=== PATIENT | female | born 1960 | race Caucasian/White ===

== ENCOUNTER 2017-01-17 18:18 | Emergency (ER) | payer OTHER, MEDICAID ==
[~2017-01-17] VITALS: Ht 167.6 cm; Wt 64.5 kg
[~2017-01-17 18:18] MED LIST: BENZ1 PO; DIVA500 PO; FLUO-1 PO; HALO5 PO; LAMO100 PO; LAMO150 PO; LISI30TA44 PO; PROZ20CA11 PO; QUET200 PO; SERO300T PO
[2017-01-17 18:26] VITALS: BP 125/87; PULSE 65; RESP 15; TEMP 98.7; O2SAT 97
--- NOTE | 2017-01-17 18:59 | PD ---
HPI Chief Complaint: Oral / Dental Pain or Problem Time Seen by Provider: 18:34 Travel History International Travel<30 days: No Contact w/Intl Traveler<30days: No Traveled to known affect area: No History of Present Illness HPI 56-year-old female presents to the emergency room requesting a biopsy of a growth in her mouth. Patient has had a growth for 9 months. States it is especially increased in size over the past 2 months. It is causing her pain when she bites down and headaches. She has been to 2 different dentists but she could not afford to have the procedure done because her insurance does not cover dental. She reportedly called the [place] oncology department who told her she needs a biopsy and she understood them to maintain that she should come to the emergency room for said biopsy. Patient has a primary care physician with whom she has an appointment next month. She has history of hypertension, hyperlipidemia, and bipolar disorder. PFSH Past Medical History Anxiety: Yes Depression: Yes Cancer: No Cardiovascular Problems: No Diabetes: No Headaches: Yes (daily since 2012) [facility]: [facility] Seizures: No Social History Alcohol Use: No Tobacco Use: No Substance Use: No Allergies-Medications (Allergen,Severity, Reaction): Coded Allergies: diphenhydramine (Unverified Allergy, Unknown, 01/17/17) erythromycin base (Unverified Allergy, Unknown, 01/17/17) ketorolac (Unverified Allergy, Unknown, 01/17/17) Reported Meds & Prescriptions Reported Meds & Active Scripts Active Quetiapine Fumarate 200 Mg Tab 800 Mg PO HS 14 Days Lamictal (Lamotrigine) 100 Mg Tab 150 Mg PO DAILY 14 Days Haldol (Haloperidol) 5 Mg Tab 5 Mg PO BID 14 Days Prozac (Fluoxetine HCl) 20 Mg Cap 20 Mg PO DAILY [address] (Divalproex Sodium) 500 Mg Tabec 500 Mg PO BID 14 Days Benztropine Mesylate 1 Mg Tab 1 Mg PO Q6H PRN 14 Days Reported Seroquel 300 mg (Quetiapine Fumarate) 300 Mg Tab 300 Mg PO HS Prozac (Fluoxetine HCl) 10 Mg Cap 10 Mg PO DAILY Lamictal (Lamotrigine) 150 Mg Tab 150 Mg PO DAILY Lisinopril 30 mg (Lisinopril) 30 Mg Tab 1 Tab PO DAILY Review of Systems Except as stated in HPI: all other systems reviewed are Neg Physical Exam Narrative GENERAL: Well-nourished, well-developed female in no acute distress. Afebrile. Ambulatory. SKIN: Focused skin assessment warm/dry. HEAD: Normocephalic. EYES: No scleral icterus. No injection or drainage. NECK: Supple, trachea midline. No JVD or lymphadenopathy. ENT: Mucosa pink and moist. No erythema or exudates. No uvular edema. No uvular , palatal, or tonsillar deviation. Airway patent. There is a 1-2 cm in diameter firm, round growth lateral to teeth 18-20. It is mildly friable. CARDIOVASCULAR: Regular rate and rhythm without murmurs, gallops, or rubs. RESPIRATORY: Breath sounds equal bilaterally. No accessory muscle use. Data Data Last Documented VS Vital Signs Date Time Temp Pulse Resp B/P (MAP) Pulse Ox O2 Delivery O2 Flow Rate FiO2 01/17/17 18:26 98.7 65 15 125/87 (100) 97 MDM Medical Decision Making Medical Screen Exam Complete: Yes Emergency Medical Condition: Yes Medical Record Reviewed: Yes Differential Diagnosis Tumor, biopsy, foreign body, benign growth, cancer Narrative Course 56-year-old female presents to the emergency room requesting biopsy of a growth in her mouth that has been present for 9 months. It significantly increased in size over the last 2 months. It bleeds occasionally. Patient has seen 2 dentists but has not been able to afford the biopsy because her insurance does not cover dental. She has not followed up with ENT, oral surgeon, or primary care physician. She has an appointment with her PCP next month. Physical exam reveals a 1-2 cm round, slightly friable, firm mass lateral to the teeth #18- 20. It is mildly tender to palpation. Patient was informed that we do not routinely perform biopsies in the emergency room and that she will need to follow-up with an oral surgeon for outpatient procedure. She was given the name of the surgeon urban design consultant. She was reassured and told to keep her appointment with her primary care physician for referral or return for urgent or emergent medical conditions. She understands and agrees to plan. Diagnosis Primary Impression: Mass of oral cavity Referrals: Eliazar Espinal DMD Additional Instructions: Follow-up with an oral surgeon. Follow-up with a primary care physician. Return to the emergency room for worsening symptoms. Disposition: 01 DISCHARGE HOME Condition: Stable Jaja Perez Jan 17, 2017 18:58
[2017-01-17] MEDS ORDERED: PROP10TA6 PO (19:00)
[2017-01-17] MEDS ORDERED: LAMO150T PO (19:00)
[2017-01-17] MEDS ORDERED: ARIP1TAB12 PO (19:00)
[2017-01-17] MEDS ORDERED: FLUO10TA PO (19:00)
[2017-01-17] MEDS ORDERED: ATOR10TA15 PO (19:00)
[2017-01-17] MEDS ORDERED: HYDR25TA5 PO (19:00)
[2017-01-17] MEDS ORDERED: METH2.5T PO (19:00)
[2017-01-17] MEDS ORDERED: RISP1TAB2 PO (19:00)
[2017-01-17] MEDS ORDERED: FOLI1TAB6 PO (19:00)
[2017-01-17] MEDS ORDERED: GABA300C5 PO (19:00)
[2017-01-17] MEDS ORDERED: TRAZ100T6 PO (19:00)
== END 2017-01-17 19:10 | disposition home or self-care (01) ==
LOC: PHEFT 18:18
DX: R22.9 Localized swelling, mass and lump, unspecified (principal); E78.5 Hyperlipidemia, unspecified; I10 Essential (primary) hypertension
CPT/HCPCS: 99281

== ENCOUNTER 2017-01-19 14:13 | Inpatient (IN) | payer OTHER, MEDICAID, MEDICARE ==
[~2017-01-19] VITALS: Ht 167.6 cm; Wt 66.7 kg
[~2017-01-19 14:13] MED LIST changes: +ARIP1TAB12 PO; +ATOR10TA15 PO; +FLUO10TA PO; +FOLI1TAB6 PO; +GABA300C5 PO; +HYDR25TA5 PO; +LAMO150T PO; +METH2.5T PO; +PROP10TA6 PO; +RISP1TAB2 PO; +TRAZ100T6 PO
[2017-01-19 14:16] VITALS: BP 127/89; PULSE 63; RESP 17; TEMP 98.4; O2SAT 96
[2017-01-19 15:03] LABS: AUTOMATED NEUTROPHIL # 4.4 TH/MM3 (1.8-7.7); BASOPHIL # 0.1 TH/MM3 (0-0.2); BASOPHIL % 1.3 % (0.0-2.0); EOSINOPHIL % 0.6 % (0.0-4.0); HEMATOCRIT 36.4 % (35.0-46.0); HEMO FLAGS DIFF FINAL; LYMPH % 22.2 % (9.0-44.0); LYMPHOCYTE # 1.5 TH/MM3 (1.0-4.8); MEAN CELL VOLUME 84.3 FL (80.0-100.0); MEAN CORPUSCULAR HGB CONC 34.4 % (32.0-36.0); NEUT % 66.9 % (16.0-70.0); PLATELET COUNT 275 TH/MM3 (150-450); RED BLOOD COUNT 4.32 MIL/MM3 (4.00-5.30); WHITE BLOOD COUNT 6.6 TH/MM3 (4.0-11.0)
[2017-01-19 15:34] LABS: ALKALINE PHOSPHATASE 85 U/L (45-117); ALT (GPT) 15 U/L (10-53); ANION GAP 9 MEQ/L (5-15); AST (GOT) 11 U/L (15-37); BLOOD UREA NITROGEN 9 MG/DL (7-18); CHLORIDE 90 MEQ/L (98-107); GLOMERULAR FILTRATION RATE 81 ML/MIN (>89); POTASSIUM 3.7 MEQ/L (3.5-5.1); TOTAL BILIRUBIN ADULT 0.3 MG/DL (0.2-1.0)
[2017-01-19 15:51] LABS: SODIUM (NA) 123 MEQ/L (136-145)
[2017-01-19] MEDS ORDERED: SODIUM CHLOR 0.9% 1000 ML INJ 1,000 ML IV SCH (16:03)
--- NOTE | 2017-01-19 16:07 | PD ---
HPI Chief Complaint: Psychiatric Symptoms Time Seen by Provider: 16:03 Travel History International Travel<30 days: No Contact w/Intl Traveler<30days: No Traveled to known affect area: No History of Present Illness HPI 56-year-old female presents to the emergency Department voluntarily for psych evaluation for feeling paranoid. She has history of paranoid schizophrenia. Takes multiple psych medications. Reports suicidal ideation. Has a plan to stab herself in the heart with a knife. Denies homicidal ideations. Reports auditory hallucinations. Says she hears voices that just talk to her. Denies visual hallucinations. Patient's sodium is low in her labs and she states history of low sodium about 2 years ago and was hospitalized at [facility] for it. Patient is complaining of a lump to her left lower oral gum that has been there for 6 months. She has followed up with oral surgery and said that they need to remove and biopsy at that she cannot afford to pay for them to do it. Allergies to Benadryl, erythromycin, and Toradol. Symptoms are moderate in severity. No other modifying factors or associated signs and symptoms. PFSH Past Medical History Anxiety: Yes Depression: Yes Cancer: No Cardiovascular Problems: No Diabetes: No Headaches: Yes (daily since 2012) Psychiatric: Yes ([facility]) Seizures: No ?: Not Social History Alcohol Use: No Tobacco Use: No Substance Use: No Allergies-Medications (Allergen,Severity, Reaction): Coded Allergies: diphenhydramine (Unverified Allergy, Unknown, 01/19/17) erythromycin base (Unverified Allergy, Unknown, 01/19/17) ketorolac (Unverified Allergy, Unknown, 01/19/17) Reported Meds & Prescriptions Reported Meds & Active Scripts Active Reported Artificial Tears Opth Oint (White Petrolatum-Mineral Oil Opth Oint 83-15%) 83-15 % Oint 1 Applic EACH EYE BID Pull down lower eyelid & apply 1/4 inch to inside of eyelid. Lidocaine Patch 12 HR (Lidocaine) 5 % Patch 1 Patch TOPICAL DAILY Remove patch after 12 hours Risperidone 1 Mg Tab 1 Mg PO DAILY Propranolol (Propranolol HCl) 10 Mg Tab 10 Mg PO Q8HR Trazodone (Trazodone HCl) 100 Mg Tablet 100 Mg PO HS Methotrexate 2.5 Mg Tab 10 Mg PO Q7D Folic Acid 1 Mg Tablet 1 Tab PO DAILY Aripiprazole 10 Mg Tab 10 Mg PO DAILY Hydrochlorothiazide 25 Mg Tab 25 Mg PO DAILY Fluoxetine (Fluoxetine HCl) 10 Mg Tab 10 Mg PO TID Lamotrigine 150 Mg Tab 150 Mg PO DAILY Gabapentin 300 Mg Cap 300 Mg PO TID Atorvastatin (Atorvastatin Calcium) 10 Mg Tab 10 Mg PO HS Review of Systems Except as stated in HPI: all other systems reviewed are Neg Physical Exam Narrative GENERAL: Well-nourished, well-developed female patient, in no acute distress SKIN: Warm and dry. HEAD: Atraumatic. Normocephalic. No facial edema or erythema noted. No lymphadenopathy. EYES: Pupils equal and round. ENT: Mucosa pink and moist. No erythema or exudates. No uvular edema. No uvular , palatal, or tonsillar deviation. Airway patent. MOUTH: Mucous membranes moist, no lesions, tongue appear normal. Left lower gum with approximately 1-1/2 cm lump that is firm and tender to palpation; no fluctuance, drainage, erythema. NECK: Supple. Trachea midline. CARDIOVASCULAR: Regular rate and rhythm. No murmur appreciated. RESPIRATORY: No accessory muscle use. Clear to auscultation. Breath sounds equal bilaterally. GASTROINTESTINAL: Abdomen soft, non-tender, nondistended. Hepatic and splenic margins not palpable. Bowel sounds are active 4 quadrants. MUSCULOSKELETAL: No obvious deformities. No clubbing. No cyanosis. No edema. NEUROLOGICAL: Awake and alert. Oriented 3. No obvious cranial nerve deficits. Motor grossly within normal limits. Normal speech. Moves all extremities. 5/5 strength to all extremities. PSYCHIATRIC: No delusional thought processes. No hallucinations. Data Data Last Documented VS Vital Signs Date Time Temp Pulse Resp B/P (MAP) Pulse Ox O2 Delivery O2 Flow Rate FiO2 01/19/17 16:55 53 16 132/82 (99) 100 Room Air 01/19/17 14:16 98.4 Orders Orders Complete Blood Count With Diff (01/19/17 14:39) Comprehensive Metabolic Panel (01/19/17 14:39) Psych Screen (01/19/17 14:39) Drug Screen, Random Urine (01/19/17 14:39) Iv Access Insert/Monitor (01/19/17 16:03) Sodium Chlor 0.9% 1000 Ml Inj (Ns 1000 M (01/19/17 16:03) Sodium Chloride 0.9% Flush (Ns Flush) (01/19/17 16:15) Urinalysis - C+S If Indicated (01/19/17 16:36) Sodium (Na) (01/19/17 18:39) Urine Culture (01/19/17 18:45) Labs Laboratory Tests Test 01/19/17 14:44 01/19/17 14:50 01/19/17 18:40 01/19/17 18:45 White Blood Count 6.6 TH/MM3 Red Blood Count 4.32 MIL/MM3 Hemoglobin 12.5 GM/DL Hematocrit 36.4 % Mean Corpuscular Volume 84.3 FL Mean Corpuscular Hemoglobin 29.0 PG Mean Corpuscular Hemoglobin Concent 34.4 % Red Cell Distribution Width 14.0 % Platelet Count 275 TH/MM3 Mean Platelet Volume 7.9 FL Neutrophils (%) (Auto) 66.9 % Lymphocytes (%) (Auto) 22.2 % Monocytes (%) (Auto) 9.0 % Eosinophils (%) (Auto) 0.6 % Basophils (%) (Auto) 1.3 % Neutrophils # (Auto) 4.4 TH/MM3 Lymphocytes # (Auto) 1.5 TH/MM3 Monocytes # (Auto) 0.6 TH/MM3 Eosinophils # (Auto) 0.0 TH/MM3 Basophils # (Auto) 0.1 TH/MM3 CBC Comment DIFF FINAL Differential Comment Blood Urea Nitrogen 9 MG/DL Creatinine 0.75 MG/DL Random Glucose 93 MG/DL Total Protein 7.9 GM/DL Albumin 4.0 GM/DL Calcium Level 9.0 MG/DL Alkaline Phosphatase 85 U/L Aspartate Amino Transf (AST/SGOT) 11 U/L Alanine Aminotransferase (ALT/SGPT) 15 U/L Total Bilirubin 0.3 MG/DL Sodium Level 123 MEQ/L 125 MEQ/L Potassium Level 3.7 MEQ/L Chloride Level 90 MEQ/L Carbon Dioxide Level 24.0 MEQ/L Anion Gap 9 MEQ/L Estimat Glomerular Filtration Rate 81 ML/MIN Urine Opiates Screen NEG Urine Barbiturates Screen NEG Urine Amphetamines Screen NEG Urine Benzodiazepines Screen NEG Urine Cocaine Screen NEG Urine Cannabinoids Screen NEG Urine Color LIGHT-YELLOW Urine Turbidity CLEAR Urine pH 6.5 Urine Specific Greer 1.010 Urine Protein NEG mg/dL Urine Glucose (UA) NEG mg/dL Urine Ketones NEG mg/dL Urine Occult Blood NEG Urine Nitrite NEG Urine Bilirubin NEG Urine Urobilinogen LESS THAN 2.0 MG/DL Urine Leukocyte Esterase LARGE Urine RBC 1 /hpf Urine WBC 34 /hpf Urine WBC Clumps RARE Urine Squamous Epithelial Cells <1 /hpf Urine Transitional Epithelial Cells 1 /hpf Microscopic Urinalysis Comment CULTURE INDICATED MDM Medical Decision Making Medical Screen Exam Complete: Yes Emergency Medical Condition: Yes Medical Record Reviewed: Yes Differential Diagnosis Suicidal ideation, suicidal threat, paranoid schizophrenia, bipolar disorder Narrative Course 56-year-old female with history of paranoid schizophrenia presents for voluntary psych screen with suicidal thoughts and a plan to stab herself in the heart. She has no current medical complaints. Labs were drawn in triage and her sodium is Sodium 123. IV site obtained. Normal saline bolus ordered. 1947: Sodium rechecked 125. Dr. Dai agrees the patient can me cleared medically for psych evaluation. Patient will be medically cleared for psych evaluation at this time. Patient instructed to follow-up with primary care provider in one week to have her sodium rechecked. Diagnosis Primary Impression: Hyponatremia Additional Impression: Medical clearance for psychiatric admission Additional Instructions: Follow-up with primary care provider in one week to have his sodium level rechecked Condition: Stable Kaitlin Rueda [address] PA[employer] HELPER Jan 19, 2017 16:07
[2017-01-19] MEDS ORDERED: SODIUM CHLORIDE 0.9% FLUSH 10 ML FLUSH IV FLUSH PRN (16:15)
[2017-01-19 16:55] VITALS: BP 132/82; PULSE 53; RESP 16; O2SAT 100
[2017-01-19] MEDS ORDERED: LIDO1PAD52 TOPICAL (16:55)
[2017-01-19] MEDS ORDERED: WHIT15OI EACH EYE (16:55)
[2017-01-19 19:32] LABS: BLOOD, URINE NEG (NEG); COMMENT (UR) CULTURE INDICATED; CULTURE IF INDICATED CULTURE INDICATED; GLUCOSE,URINE NEG (NEG); KETONE, URINE NEG (NEG); NITRITE,URINE NEG (NEG); PH, URINE 6.5 (5.0-8.5); SQUAMOUS EPITHELIAL CELL URINE <1 /hpf (0-5); TRANSITIONAL EPI CELLS, URINE 1 /hpf; URINE COLOR LIGHT-YELLOW (YELLW/STRAW)
[2017-01-19 20:18] VITALS: BP 144/96; PULSE 59; RESP 18; O2SAT 96
[2017-01-19 21:51] VITALS: BP 145/90; PULSE 53; RESP 16; O2SAT 99
[2017-01-20 02:00] VITALS: BP 113/71; PULSE 85; RESP 18; O2SAT 95
[2017-01-20 06:47] VITALS: BP 147/87; PULSE 62; RESP 18
[2017-01-20 12:00] VITALS: BP 132/94; PULSE 67; RESP 18; TEMP 97.4; O2SAT 98
[2017-01-20] MEDS ORDERED: LORazepam 1 MG TAB PO PRN (17:30)
[2017-01-20] MEDS ORDERED: BENZTROPINE MESYLATE 1 MG TAB PO PRN (17:30)
[2017-01-20] MEDS ORDERED: BENZTROPINE MESYLATE 2 MG/2 ML VIAL IM PRN (17:30)
[2017-01-20] MEDS ORDERED: LORazepam 0.5 MG TAB PO PRN (17:30)
[2017-01-20] MEDS ORDERED: MAGNESIUM HYDROXIDE SUSP 30 ML CUP PO PRN (17:30)
[2017-01-20] MEDS ORDERED: LORazepam 2 MG/ML VIAL IM PRN ×2 (17:30)
[2017-01-20] MEDS ORDERED: ALUMINUM/MAGNESIUM/SIMETH 30 ML CUP PO PRN (17:30)
[2017-01-20] MEDS ORDERED: PILL SPLITTER OTHER PRN (18:00)
[2017-01-20] MEDS: GABAPENTIN 300 MG CAP PO SCH (18:12)
[2017-01-20 18:14] VITALS: BP 144/92; PULSE 68; RESP 17; TEMP 97.5; O2SAT 99
[2017-01-20 18:48] VITALS: BP 166/86; PULSE 69; RESP 16; TEMP 98.5; O2SAT 96
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
[2017-01-20] MEDS: OLANZapine 5 MG TAB PO SCH (21:00)
[2017-01-20] MEDS: traZODone HCL 50 MG TAB PO SCH (21:28)
[2017-01-21] MEDS: ACETAMINOPHEN 325 MG TAB PO PRN (05:12)
[2017-01-21 05:55] VITALS: BP 160/86; PULSE 16; RESP 59; TEMP 97.9
[2017-01-21] MEDS: OLANZapine 5 MG TAB PO SCH ×2 (09:00→21:00)
[2017-01-21] MEDS ORDERED: NICOTINE 21 MG/24 HR PATCH T-DERMAL SCH (09:00)
[2017-01-21] MEDS ORDERED: REMOVE OLD PATCH T-DERMAL SCH (09:00)
[2017-01-21] MEDS: FLUoxetine HCL 10 MG CAP PO SCH (09:40)
[2017-01-21] MEDS: lamoTRIgine 100 MG TAB PO SCH (09:40)
[2017-01-21] MEDS: GABAPENTIN 300 MG CAP PO SCH ×3 (09:41→17:36)
--- NOTE | 2017-01-21 09:51 | EKG ---
Date Performed: 01/21/2017 Time Performed: 09:17:17 PTAGE: 56 years EKG: SINUS BRADYCARDIA LOW QRS VOLTAGE IN PRECORDIAL LEADS MODERATE T-WAVE ABNORMALITY, CONSIDER ANTERIOR ISCHEMIA ABNORMAL ECG NO PREVIOUS TRACING DOCTOR: Arthur Euceda Interpretating Date/Time 01/21/2017 09:49:44
--- NOTE | 2017-01-21 11:10 | HHI.PYPN ---
Subjective Remarks Patient was seen and case discussed with nursing. Patient describes feeling hopeless, doubting herself. Mood remains depressed. Auditory hallucinations are less severe. Continue to tell her to hurt herself. Patient says she prefers her room given all the noise in the hallways. Today, patient denies suicidal or homicidal thoughts ideation intent or plan. The medical consult is pending along with a current sodium level. Objective Alert: Yes [place]: Person, Place, Date, Situation Mood: Anxious Affect: Blunted Memory Intact: Immediate (grossly intact) Hallucinations: Auditory (to hurt herself) Delusions: Yes Delusion Type: Paranoid (none elicited) Suicidal: Ideation (denies) Homicidal: Ideation (denies) Insight/Judgment Poor Labs Date/Time Source Procedure Growth Status 01/19/17 18:45 Urine Clean Catch Urine Culture - Preliminary IMMATURE GROWTH - REINCUBATE Resulted Vitals/IOs Vital Signs Date Time Temp Pulse Resp B/P (MAP) Pulse Ox O2 Delivery O2 Flow Rate FiO2 01/21/17 05:55 97.9 16 59 160/86 (110) 01/20/17 18:48 96 01/20/17 12:00 Room Air Assessment & Plan Problem List: (1) Schizophrenia ICD Codes: F20.9 - Schizophrenia, unspecified Assessment & Plan await medical consult and sodium level before titrating antipsychotic Justification for Cont. Inpt. Patient will decompensate in a less restrictive setting Nash Rushing DO Jan 21, 2017 11:10
[2017-01-21 11:52] LABS: ANION GAP 4 MEQ/L (5-15); BICARBONATE 31.7 MEQ/L (21.0-32.0); BLOOD UREA NITROGEN 9 MG/DL (7-18); CHLORIDE 99 MEQ/L (98-107); GLOMERULAR FILTRATION RATE 77 ML/MIN (>89); POTASSIUM 4.1 MEQ/L (3.5-5.1); SODIUM (NA) 135 MEQ/L (136-145)
[2017-01-21] MEDS ORDERED: amLODIPine BESYLATE 5 MG TAB PO ONE (15:00)
--- NOTE | 2017-01-21 16:30 | PD.CONS ---
HPI Service [facility] Hospitalists Consult Requested By Psychiatry. Reason for Consult Oral mass, hyponatremia, hypertension. Primary Care Physician Irvin Kennedy MD Diagnoses: History of Present Illness Ms. Chiu is a pleasant 56 year old female with a history of hypertension, arthritic pain who was admitted to the hospital due to hallucinations, suicidal ideations. Patient is currently undergoing psychiatric treatments. Hospitalist service was consulted for medical management, especially with regards to a oral mass as well as hypertension, hyponatremia. At the time of this interview, patient is talking to her aunt in the visitor's area. She complains of left sided facial pain. She started noticing a nodular mass in the left side of her oral cavity back in April 2016 but much worsened in the last two months. She reports no chest pain, SOB, fever, chills. Denies any changes in bladder or bowel habits. She complains of chronic arthritis pain. Review of Systems Except as stated in HPI: all other systems reviewed are Neg Past Family Social History Allergies: Coded Allergies: diphenhydramine (Unverified Allergy, Unknown, 01/19/17) erythromycin base (Unverified Allergy, Unknown, 01/19/17) ketorolac (Unverified Allergy, Unknown, 01/19/17) Past Medical History Hypertension Arthritis Bradycardia. Auditory hallucinations Suicidal ideations Anxiety Past Surgical History Carpal tunnel surgery Right ovarian surgery. Reported Medications Current Medications Medications (Trade) Dose Ordered Sig/Pedrito Route Start Time Stop Time Status Last Admin (NS Flush) 2 ml UNSCH PRN IV FLUSH 01/19/17 16:15 01/19/17 16:26 (Ativan) 1 mg Q6H PRN PO 01/20/17 17:30 (Ativan Inj) 1 mg Q6H PRN IM 01/20/17 17:30 (Tylenol) 650 mg Q4H PRN PO 01/20/17 17:30 01/21/17 05:12 (Milk Of Magnesia Liq) 30 ml DAILY PRN PO 01/20/17 17:30 (Mag-Al Plus Susp Liq) 30 ml Q6H PRN PO 01/20/17 17:30 (Cogentin) 1 mg Q12H PRN PO 01/20/17 17:30 (Cogentin Inj) 1 mg Q12H PRN IM 01/20/17 17:30 (LaMICtal) 150 mg DAILY PO 01/21/17 09:00 01/21/17 09:40 (Neurontin) 300 mg TID PO 01/20/17 18:00 01/21/17 12:18 (PROzac) 10 mg DAILY PO 01/21/17 09:00 01/21/17 09:40 (ZyPREXA) 5 mg Q12HR PO 01/20/17 21:00 01/21/17 09:00 (Desyrel) 50 mg HS PO 01/20/17 21:00 01/20/17 21:28 (Pill Splitter) 1 ea UNSCH PRN OTHER 01/20/17 18:00 (Norvasc) 5 mg DAILY PO 01/22/17 09:00 Family History Mother, sister - heart disease. Social History Denies using tobacco, alcohol or illicit drugs. Physical Exam Vital Signs Vital Signs Date Time Temp Pulse Resp B/P (MAP) Pulse Ox O2 Delivery O2 Flow Rate FiO2 01/21/17 05:55 97.9 16 59 160/86 (110) 01/20/17 18:48 98.5 69 16 166/86 (112) 96 01/20/17 18:35 01/20/17 18:14 97.5 68 17 144/92 (109) 99 Physical Exam GENERAL: This is a well-nourished, well-developed patient, in no apparent distress. SKIN: No rashes, ecchymoses or lesions. Warm and dry. HEAD: Atraumatic. Normocephalic. No temporal or scalp tenderness. There is a round mass inside the oral cavity near the left jaw. EYES: Pupils equal round and reactive. No injection or drainage. ENT: Nose without bleeding, purulent drainage or septal hematoma. Airway patent. NECK: Trachea midline. No lymphadenopathy. Supple, nontender, no meningeal signs. CARDIOVASCULAR: Regular rate and rhythm without murmurs, gallops, or rubs. No JVD. RESPIRATORY: Clear to auscultation. Breath sounds equal bilaterally. No wheezes , rales, or rhonchi. GASTROINTESTINAL: Abdomen soft, non-tender, nondistended. No guarding. MUSCULOSKELETAL: Extremities without clubbing, cyanosis, or edema. NEUROLOGICAL: Awake and alert. Cranial nerves II through XII intact. No focal neurological deficits. Normal speech. Laboratory Laboratory Tests Test 01/21/17 10:48 Blood Urea Nitrogen 9 Creatinine 0.78 Random Glucose 69 Calcium Level 9.6 Sodium Level 135 Potassium Level 4.1 Chloride Level 99 Carbon Dioxide Level 31.7 Anion Gap 4 Estimat Glomerular Filtration Rate 77 Thyroid Stimulating Hormone 3rd Gen 1.440 Date/Time Source Procedure Growth Status 01/19/17 18:45 Urine Clean Catch Urine Culture - Final 10-50,000 CFU/ML MIXED GRAM POSITIVE ... Complete Result Diagram: 01/19/17 1444 01/21/17 1048 Assessment and Plan Problem List: (1) HTN (hypertension) ICD Code: I10 - Essential (primary) hypertension (2) Mass of oral cavity ICD Code: K13.70 - Unspecified lesions of oral mucosa (3) Schizophrenia ICD Code: F20.9 - Schizophrenia, unspecified (4) Hyponatremia ICD Code: E87.1 - Hypo-osmolality and hyponatremia Status: Acute Assessment and Plan Ms. Chiu is a pleasant 56 year old female who was admitted to they psychiatry service due to hallucinations, suicidal ideations. Hospitalist service was consulted for hyponatremia, hypertension and a mass in the oral cavity. - schizophrenia - suicidal ideation - Management per Psychiatry. - Mass of oral cavity - Will consult Oral surgery for an evaluation. This may need to be surgically resected. - Will start empirical abx - Augmentin. - Hypertension - Start Amlodipine 5mg Qday. - Hyponatremia - currently resolved. May have been due to psychotropic medications. - Na 123 --> 125 --> 135. - Will get BMP on 01/23/2017. TSH within normal range. - Bradycardia - Patient apparently has a history of bradycardia. She has been seen by [facility]. - She was on Propranolol which may have caused bradycardia in the past. - Will refrain from using Propranolol for now. Full code. Ambulation. Thank you for the consult. We will continue to follow this patient with you. Deanne Fermin DO Jan 21, 2017 16:30
[2017-01-21] MEDS ORDERED: NAPROXEN 375 MG TAB PO PRN (16:45)
[2017-01-21 17:55] VITALS: BP 115/69; PULSE 57; RESP 16; TEMP 98.1; O2SAT 98
[2017-01-21] MEDS: AMOXICILLIN/CLAVULANATE K 875 MG TAB PO SCH (21:03)
[2017-01-21] MEDS: traZODone HCL 50 MG TAB PO SCH (21:03)
[2017-01-22 06:41] VITALS: BP 109/74; PULSE 69; RESP 16; TEMP 97.6; O2SAT 95
[2017-01-22] MEDS: PANTOPRAZOLE SOD 20 MG DELAYED RELEASE TAB PO SCH (08:28)
[2017-01-22] MEDS: OLANZapine 5 MG TAB PO SCH ×2 (08:29→20:48)
[2017-01-22] MEDS: lamoTRIgine 100 MG TAB PO SCH (08:29)
[2017-01-22] MEDS: AMOXICILLIN/CLAVULANATE K 875 MG TAB PO SCH ×2 (08:29→20:48)
[2017-01-22] MEDS: GABAPENTIN 300 MG CAP PO SCH ×3 (08:29→17:12)
[2017-01-22] MEDS: FLUoxetine HCL 10 MG CAP PO SCH (08:29)
[2017-01-22] MEDS ORDERED: amLODIPine BESYLATE 5 MG TAB PO SCH (09:00)
[2017-01-22] MEDS: amLODIPine BESYLATE 5 MG TAB PO SCH (09:20)
--- NOTE | 2017-01-22 10:15 | MB ---
cc: PAVAN ESPINAL DMD DATE OF CONSULTATION: 01/22/2017 REASON FOR CONSULTATION Mass next to a tooth. HISTORY OF PRESENT ILLNESS This is a 56-year-old female who has been admitted to the hospital for hallucinations and history of suicidal ideations. She is in a psychiatric jeong now. I have seen and examined this patient. Her nurse is at the bedside. I was consulted for evaluation of this growth/mass on the left mandible region next to the adjacent tooth. The patient is seen and examined this morning. She is alert, awake and oriented x3, in no acute distress. She denies any fever, chills, nausea, vomiting, shortness of breath, any difficulty breathing or difficulty swallowing. She is tolerating p.o. well. PAST MEDICAL HISTORY 1. Hypertension. 2. Bradycardia. 3. Hallucinations. 4. Suicidal ideations. 5. Anxiety. 6. Arthritis. ALLERGIES 1. ERYTHROMYCIN. 2. KETOROLAC. 3. DIPHENHYDRAMINE. PAST SURGICAL HISTORY Ovarian surgery. MEDICATIONS As per report. SOCIAL HISTORY Denies any tobacco, alcohol or illicit drugs. She reports she used drugs a long time ago. PHYSICAL EXAMINATION GENERAL: This is a well-groomed, well-nourished woman in no acute distress. ORAL/MAXILLOFACIAL: Facial exam shows no gross facial edema. No neck edema. Intraorally tissues are pink and well-perfused. No clinical signs of elevation of the floor of mouth or tongue. No deviation of the uvula. No trismus is noted. The patient has a firm area of her gingiva/attached gingiva in the region of tooth #18 on the buccal, non-movable, well-circumscribed, approximately a centimeter. No pus is noted coming from that. No tenderness to palpation. LABORATORY White count 6.6, H&H 12.5 and 36.4, platelets of 275. IMPRESSION This is a 56-year-old female who for the past 9 months has this mass that has been growing slowly around tooth #18. She had seen an oral surgeon who planned to take the tooth out but since the patient did not have any funds was unable to do so. She was referred by [facility]. She is admitted for suicidal ideations and hallucinations and is in psychiatric jeong. PLAN The plan is to continue the antibiotic the patient is on. My differential diagnosis could be decayed tooth #18 causing inflammation on the gingiva versus a pyrogenic granuloma. Will take a panoramic x-ray in the office and remove that lesion and sent it for biopsy as needed, and extract tooth #18 as needed. The patient is no acute distress, tolerating p.o. well. I did discuss this plan with the patient and she is amenable to that. The patient was previously admitted last week on the and told to follow-up in the office but she said she was unaware she was told that. Will also discuss this with Dr. Fermin, her attending. Will have the patient follow-up in our office at [facility], Dr. Espinal, at [phone]. Pavan Espinal DMD RRT/MALLIKA /9:37 AM /9:58 AM
[2017-01-22] MEDS: ACETAMINOPHEN 325 MG TAB PO PRN ×2 (11:33→17:12)
[2017-01-22 16:23] LABS: HEMOGLOBIN A1a 1.1 %; HEMOGLOBIN A1b 1.6 %; HEMOGLOBIN Ao 85.7 %; HEMOGLOBIN LA1C 1.8 %; HEMOGLOBIN P3 3.5 %
--- NOTE | 2017-01-22 16:47 | HHI.PYPN ---
Subjective Remarks Patient seen in dayroom with floor staff, chart review, patient compliant medication. Patient continues somewhat psychotic acknowledging continued auditory hallucinations but unable to identify the voices. Though there is somewhat frightening. She also appears she has some paranoid thoughts related to family members who she feels may be conspiring against her. She is happy that the dentist did visit her today and he will be able to excise the mass in her left cheek after discharge. For now continue treatment no change patient feels voices are slightly diminished Review of Systems Except as stated in HPI: all other systems reviewed are Neg Objective Alert: Yes [place]: Person, Place, Date, Situation Mood: Anxious Affect: Blunted Memory Intact: Immediate Hallucinations: Auditory Delusions: Yes Delusion Type: Paranoid Suicidal: Ideation Homicidal: Ideation Insight/Judgment Poor Labs Date/Time Source Procedure Growth Status 01/19/17 18:45 Urine Clean Catch Urine Culture - Final 10-50,000 CFU/ML MIXED GRAM POSITIVE ... Complete Vitals/IOs Vital Signs Date Time Temp Pulse Resp B/P (MAP) Pulse Ox O2 Delivery O2 Flow Rate FiO2 01/22/17 06:41 97.6 69 16 109/74 (86) 95 01/20/17 12:00 Room Air Assessment & Plan Problem List: (1) Schizophrenia ICD Codes: F20.9 - Schizophrenia, unspecified Assessment & Plan Estimated LOS: days patient continue psychotic and delusional, compliant medications. For now continue treatment Justification for Cont. Inpt. At this time patient will decompensate with place to the lower level of care Discharge Planning To be determined Problem Qualifiers (1) Schizophrenia: Qualified Codes: F20.0 - Paranoid schizophrenia Torsten Coronado MD Jan 22, 2017 16:47
[2017-01-22 17:58] VITALS: BP 138/78; PULSE 54; RESP 18; TEMP 97.4; O2SAT 100
[2017-01-22] MEDS: traZODone HCL 50 MG TAB PO SCH (20:48)
[2017-01-23 06:20] VITALS: BP 142/89; PULSE 80; RESP 18; TEMP 98.3; O2SAT 99
[2017-01-23] MEDS: OLANZapine 5 MG TAB PO SCH (09:00)
[2017-01-23] MEDS: amLODIPine BESYLATE 5 MG TAB PO SCH (09:04)
[2017-01-23] MEDS: AMOXICILLIN/CLAVULANATE K 875 MG TAB PO SCH ×2 (09:04→21:00)
[2017-01-23] MEDS: FLUoxetine HCL 10 MG CAP PO SCH (09:04)
[2017-01-23] MEDS: lamoTRIgine 100 MG TAB PO SCH (09:05)
[2017-01-23] MEDS: GABAPENTIN 300 MG CAP PO SCH ×3 (09:05→18:25)
[2017-01-23] MEDS: PANTOPRAZOLE SOD 20 MG DELAYED RELEASE TAB PO SCH (09:05)
--- NOTE | 2017-01-23 10:02 | HHI.PR ---
Subjective Remarks Follow-up visit left oral mass next to the tooth, HTN. Patient seen and examined today. Reports she is doing "a lot better." States she's been seen by Dr. Espinal and will have a follow-up visit when she gets out of the hospital. Reports oral resuscitation bleeds at night otherwise denies any pain or discomfort. Reports constipation. Denies SOB/ dyspnea. Denies chest pain, headaches, dizziness. Denies fevers, chills, n/v/d. Denies dysuria. Objective Vitals Vital Signs Date Time Temp Pulse Resp B/P (MAP) Pulse Ox O2 Delivery O2 Flow Rate FiO2 01/23/17 06:20 98.3 80 18 142/89 (106) 99 01/22/17 17:58 97.4 54 18 138/78 (98) 100 I/O 01/22/17 01/22/17 01/22/17 01/23/17 01/23/17 01/23/17 06:59 14:59 22:59 06:59 14:59 22:59 Intake Total 240 ml Balance 240 ml Intake Oral 240 ml Result Diagram: 01/19/17 1444 01/21/17 1048 Objective Remarks GENERAL: This is a well-nourished, well-developed patient, in no apparent distress. SKIN: Warm and dry. HEENT: Normocephalic. Pupils equal round and reactive. Nose without bleeding. Airway patent. Left gingival lesion, edema vs mass, no erythema noted. NECK: Trachea midline. No JVD. Supple. CARDIOVASCULAR: Regular rate and rhythm without murmurs, gallops, or rubs. RESPIRATORY: Clear to auscultation. Breath sounds equal bilaterally. No wheezes , rales, or rhonchi. GASTROINTESTINAL: Abdomen soft, non-tender, nondistended. Bowel Sounds hypoactive. MUSCULOSKELETAL: Extremities without clubbing, cyanosis, or edema. NEUROLOGICAL: Awake and alert. Oriented to time, place, person. No focal neuro deficit. Moves all extremities. Normal speech. A/P Problem List: (1) HTN (hypertension) ICD Code: I10 - Essential (primary) hypertension (2) Mass of oral cavity ICD Code: K13.70 - Unspecified lesions of oral mucosa (3) Schizophrenia ICD Code: F20.9 - Schizophrenia, unspecified (4) Hyponatremia ICD Code: E87.1 - Hypo-osmolality and hyponatremia Status: Acute Assessment and Plan Ms. Chiu is a pleasant 56 year old female who was admitted to they psychiatry service due to hallucinations, suicidal ideations. Hospitalist service was consulted for hyponatremia, hypertension and a mass in the oral cavity. schizophrenia suicidal ideation - Management per Psychiatry. Mass of oral cavity - Oral surgery consulted. Recommend f/u in outpatient for full work up including panoramic xray, possible resection and tooth extraction. - Continue Augmentin, 7 days Hypertension - Amlodipine 5mg Qday. Previously on HCTZ, hold off use since patient has hyponatremia - BP improved. Hyponatremia - currently resolved. May have been due to psychotropic medications and HCTZ use - Na 123 --> 125 --> 135. - TSH within normal range. - Follow BMP result today Bradycardia - Patient apparently has a history of bradycardia. She has been seen by [facility]. - She was on Propranolol which may have caused bradycardia in the past. - Will refrain from using Propranolol for now. - HR improving, occasional bradycardia. Asymptomatic. - Follow up with [facility] as outpatient Full code. Ambulation. Discuss with patient, nursing, Dr. Zander Valencia from Hospitalist standpoint. We will sign off. Reconsult as needed. Problem Qualifiers (1) Schizophrenia: Qualified Codes: F20.0 - Paranoid schizophrenia Ibis Snow Jan 23, 2017 10:02
[2017-01-23 10:26] LABS: BICARBONATE 28.5 MEQ/L (21.0-32.0); POTASSIUM 4.1 MEQ/L (3.5-5.1)
--- NOTE | 2017-01-23 13:27 | HHI.PYPN ---
Subjective Remarks Patient seen in [place] with nurse Sumner, chart review, patient compliant medication. Patient somewhat more focused with better eye contact with me. Though she acknowledges continued auditory hallucinations of a somewhat threatening nature. Will increase Zyprexa to 5 mg a.m. 10 mg at bedtime Review of Systems Except as stated in HPI: all other systems reviewed are Neg Objective Alert: Yes [place]: Person, Place, Date, Situation Mood: Anxious Affect: Blunted Memory Intact: Immediate Hallucinations: Auditory Delusions: Yes Delusion Type: Paranoid Suicidal: Ideation Homicidal: Ideation Insight/Judgment Poor Labs Test 01/23/17 09:22 Blood Urea Nitrogen 9 MG/DL Creatinine 0.72 MG/DL Random Glucose 60 MG/DL Calcium Level 9.3 MG/DL Sodium Level 133 MEQ/L Potassium Level 4.1 MEQ/L Chloride Level 99 MEQ/L Carbon Dioxide Level 28.5 MEQ/L Anion Gap 6 MEQ/L Estimat Glomerular Filtration Rate 84 ML/MIN Date/Time Source Procedure Growth Status 01/19/17 18:45 Urine Clean Catch Urine Culture - Final 10-50,000 CFU/ML MIXED GRAM POSITIVE ... Complete Vitals/IOs Vital Signs Date Time Temp Pulse Resp B/P (MAP) Pulse Ox O2 Delivery O2 Flow Rate FiO2 01/23/17 06:20 98.3 80 18 142/89 (106) 99 01/20/17 12:00 Room Air Intake and Output 01/23/17 01/23/17 01/24/17 08:00 16:00 00:00 Intake Total 240 ml Balance 240 ml Assessment & Plan Problem List: (1) Schizophrenia ICD Codes: F20.9 - Schizophrenia, unspecified Assessment & Plan Estimated LOS: days patient continue psychotic though somewhat softer please see medication adjustments above Justification for Cont. Inpt. At this time patient will decompensate if placed on the lower level of care Discharge Planning To be determined Problem Qualifiers (1) Schizophrenia: Qualified Codes: F20.0 - Paranoid schizophrenia Torsten Coronado MD Jan 23, 2017 13:27
[2017-01-23 18:15] VITALS: BP 100/68; PULSE 62; RESP 17; TEMP 98; O2SAT 99
[2017-01-23] MEDS: traZODone HCL 50 MG TAB PO SCH (21:00)
[2017-01-23] MEDS: OLANZapine 10 MG TAB PO SCH (21:00)
[2017-01-24 05:43] VITALS: BP 97/57; PULSE 54; RESP 18; TEMP 97.3
[2017-01-24] MEDS: GABAPENTIN 300 MG CAP PO SCH ×3 (08:21→18:04)
[2017-01-24] MEDS: AMOXICILLIN/CLAVULANATE K 875 MG TAB PO SCH ×2 (08:21→20:41)
[2017-01-24] MEDS: FLUoxetine HCL 10 MG CAP PO SCH (08:21)
[2017-01-24] MEDS: PANTOPRAZOLE SOD 20 MG DELAYED RELEASE TAB PO SCH (08:21)
[2017-01-24] MEDS: lamoTRIgine 100 MG TAB PO SCH (08:22)
[2017-01-24] MEDS: amLODIPine BESYLATE 5 MG TAB PO SCH (08:26)
[2017-01-24] MEDS: OLANZapine 5 MG TAB PO SCH (09:00)
--- NOTE | 2017-01-24 12:30 | HHI.PYPN ---
Subjective Remarks Patient seen in her room with nurse Burak, states she is feeling better, the voices are just about gone with this time. Denies suicidality. Compliant with her medications. States she feels like she is just about ready for discharge. We'll continue monitoring another 24 hours if patient continues to improve consider discharge tomorrow Review of Systems Except as stated in HPI: all other systems reviewed are Neg Objective Alert: Yes [place]: Person, Place, Date, Situation Mood: Anxious Affect: Blunted Memory Intact: Immediate Hallucinations: Auditory Delusions: Yes Delusion Type: Paranoid Suicidal: Ideation Homicidal: Ideation Insight/Judgment Poor Labs Date/Time Source Procedure Growth Status 01/19/17 18:45 Urine Clean Catch Urine Culture - Final 10-50,000 CFU/ML MIXED GRAM POSITIVE ... Complete Vitals/IOs Vital Signs Date Time Temp Pulse Resp B/P (MAP) Pulse Ox O2 Delivery O2 Flow Rate FiO2 01/24/17 05:43 97.3 54 18 97/57 (70) 01/23/17 18:15 99 01/20/17 12:00 Room Air Assessment & Plan Problem List: (1) Schizophrenia ICD Codes: F20.9 - Schizophrenia, unspecified Assessment & Plan Estimated LOS: days patient psychosis is slowly resolving, she is calm cooperative and more focused. Consider discharge tomorrow if she continues to improve Justification for Cont. Inpt. At this time patient may decompensate if placed the lower level of care Discharge Planning To be determined Problem Qualifiers (1) Schizophrenia: Qualified Codes: F20.0 - Paranoid schizophrenia Torsten Coronado MD Jan 24, 2017 12:30
[2017-01-24 17:05] VITALS: BP 92/58; PULSE 56; RESP 17; TEMP 98; O2SAT 98
[2017-01-24] MEDS: OLANZapine 10 MG TAB PO SCH (20:41)
[2017-01-24] MEDS: traZODone HCL 50 MG TAB PO SCH (20:41)
[2017-01-25 06:17] VITALS: BP 128/77; PULSE 62; RESP 18; TEMP 96.2; O2SAT 95
[2017-01-25] MEDS: AMOXICILLIN/CLAVULANATE K 875 MG TAB PO SCH ×2 (09:24→21:28)
[2017-01-25] MEDS: lamoTRIgine 100 MG TAB PO SCH (09:26)
[2017-01-25] MEDS: GABAPENTIN 300 MG CAP PO SCH ×3 (09:27→17:49)
[2017-01-25] MEDS: FLUoxetine HCL 10 MG CAP PO SCH (09:27)
[2017-01-25] MEDS: amLODIPine BESYLATE 5 MG TAB PO SCH (09:27)
[2017-01-25] MEDS: OLANZapine 5 MG TAB PO SCH (09:28)
[2017-01-25] MEDS: PANTOPRAZOLE SOD 20 MG DELAYED RELEASE TAB PO SCH (09:28)
[2017-01-25] MEDS: ACETAMINOPHEN 325 MG TAB PO PRN (09:29)
--- NOTE | 2017-01-25 14:06 | HHI.PYPN ---
Subjective Remarks Patient seen in [place] with floor staff and nurse Arturo, chart reviewed, patient compliant medicine. Patient stating she is feeling better since the voices are just about diminished. Denies suicidality homicidality. Patient continues to do well consider discharge tomorrow Review of Systems Except as stated in HPI: all other systems reviewed are Neg Mental Status Examination Appearance: Appropriate Consciousness: Alert Speech: Unremarkable Orientation: x3 Memory: Unremarkable Thought Content: Unremarkable Thought Associations: Intact Fund of Knowledge: Average Hallucination Type: Auditory ("just about gone") Attention and Concentration: Easily Distracted Suicidal Ideation: Yes (denies at this time) Previous Suicide Attempts: No Homicidal Ideation: No Previous Homicide Attempts: No Insight: Fair Judgment: Adequate Affect: Other (good range and intensity) Mood: Euthymic (to mildly dysphoric), Anxious Motor Activity: Normal gait Results Labs Date/Time Source Procedure Growth Status 01/19/17 18:45 Urine Clean Catch Urine Culture - Final 10-50,000 CFU/ML MIXED GRAM POSITIVE ... Complete Vitals/IOs Vital Signs Date Time Temp Pulse Resp B/P (MAP) Pulse Ox O2 Delivery O2 Flow Rate FiO2 01/25/17 06:17 96.2 62 18 128/77 (94) 95 Assessment & Plan Problem List: (1) Schizophrenia ICD Codes: F20.9 - Schizophrenia, unspecified Assessment & Plan Estimated LOS: days patient psychosis resolving her affect is improving. Compliant medications. Patient is to improve consider discharge tomorrow Justification for Cont. Inpt. 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
[2017-01-25 18:34] VITALS: BP 131/82; PULSE 59; RESP 16; TEMP 97.8; O2SAT 98
[2017-01-25] MEDS: OLANZapine 10 MG TAB PO SCH (21:28)
[2017-01-25] MEDS: traZODone HCL 50 MG TAB PO SCH (21:28)
[2017-01-26 05:52] VITALS: BP 139/79; PULSE 57; RESP 17; TEMP 97.5; O2SAT 96
[2017-01-26] MEDS: AMOXICILLIN/CLAVULANATE K 875 MG TAB PO SCH (08:26)
[2017-01-26] MEDS: amLODIPine BESYLATE 5 MG TAB PO SCH (08:26)
[2017-01-26] MEDS: lamoTRIgine 100 MG TAB PO SCH (08:26)
[2017-01-26] MEDS: PANTOPRAZOLE SOD 20 MG DELAYED RELEASE TAB PO SCH (08:26)
[2017-01-26] MEDS: FLUoxetine HCL 10 MG CAP PO SCH (08:26)
[2017-01-26] MEDS: OLANZapine 5 MG TAB PO SCH (08:27)
[2017-01-26] MEDS: GABAPENTIN 300 MG CAP PO SCH ×2 (08:28→13:45)
[2017-01-26] MEDS ORDERED: NEUR300C PO (15:00)
[2017-01-26] MEDS ORDERED: PANT20 PO (15:00)
[2017-01-26] MEDS ORDERED: TRAZ50TA12 PO (15:00)
[2017-01-26] MEDS ORDERED: FLUO10CA4 PO (15:00)
[2017-01-26] MEDS ORDERED: AMLO5 PO (15:00)
[2017-01-26] MEDS ORDERED: AMOX875T2 PO (15:00)
[2017-01-26] MEDS ORDERED: OLAN5TAB PO (15:00)
[2017-01-26] MEDS ORDERED: OLAN10TA PO (15:00)
[2017-01-26] MEDS ORDERED: LAMO100 PO (15:00)
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
== END 2017-01-26 16:57 | disposition home or self-care (01) | DRG 885 ==
LOC: NEPD 14:13 → NEDA 01-20 17:36 → H260 01-20 18:31
PROVIDERS: ADMIT Psychiatry & Neurology Psychiatry; ATTEND Psychiatry & Neurology Psychiatry
DX: F25.9 Schizoaffective disorder, unspecified (principal); E87.1 Hypo-osmolality and hyponatremia; R45.851 Suicidal ideations; I10 Essential (primary) hypertension; G89.29 Other chronic pain; M19.90 Unspecified osteoarthritis, unspecified site; K59.00 Constipation, unspecified
CPT/HCPCS: 80048; 80053; 80307; 81001; 83036; 84295; 84443; 85025; 87086; 93005; 96360; J7030

== ENCOUNTER 2017-07-20 11:01 | Emergency (ER) | payer OTHER, MEDICAID ==
[~2017-07-20] VITALS: Ht 167.6 cm; Wt 69.7 kg
[~2017-07-20 11:01] MED LIST changes: +AMLO5 PO; +AMOX875T2 PO; -BENZ1 PO; -DIVA500 PO; -FLUO-1 PO; +FLUO10CA4 PO; -HALO5 PO; -LAMO150 PO; +LIDO1PAD52 TOPICAL; -LISI30TA44 PO; +NEUR300C PO; +OLAN10TA PO; +OLAN5TAB PO; +PANT20 PO; -PROZ20CA11 PO; -QUET200 PO; -SERO300T PO; +TRAZ100T10 PO; -TRAZ100T6 PO; +TRAZ50TA12 PO; +WHIT15OI EACH EYE
[2017-07-20 11:47] VITALS: BP 119/67; PULSE 58; RESP 16; TEMP 99; O2SAT 98
--- NOTE | 2017-07-20 12:37 | RADRPT ---
EXAM DATE/TIME: 07/20/2017 12:05 [place] COMPARISON: No previous studies available for comparison. INDICATIONS : Left ankle pain post fall. MEDICAL HISTORY : None. SURGICAL HISTORY : None. ENCOUNTER: Initial ACUITY: 1 week PAIN SCORE: 5/10 LOCATION: Left lateral ankle FINDINGS: There is soft tissue swelling over the ankle on the lateral side. Normal alignment. No acute fracture or dislocation. CONCLUSION: 1. Soft tissue swelling at the left ankle. No acute bony abnormalities. Chet Quevedo MD on July 20, 2017 at 12:33 Board Certified Radiologist. This report was verified electronically.
--- NOTE | 2017-07-20 12:49 | PD ---
HPI Chief Complaint: Injury Time Seen by Provider: 11:55 Travel History International Travel<30 days: No Contact w/Intl Traveler<30days: No Traveled to known affect area: No History of Present Illness HPI This is a 56-year-old female here with left ankle pain after a twisting injury one week ago. She reports the swelling and pain fail to improve since the injury and she is concerned of fracture. She denies paresthesias or weakness of the extremity. She has pain with weightbearing which is relieved with rest. Symptom severity is moderate. PFSH Past Medical History Anxiety: Yes Depression: Yes Cancer: No Cardiovascular Problems: No High Cholesterol: Yes Diabetes: No Diminished Hearing: No GERD: Yes Headaches: Yes (daily since 2012) Psychiatric: Yes (history of bipolar) Schizophrenia: Yes Seizures: No Influenza Vaccination: No ?: Not Social History Alcohol Use: No Tobacco Use: No Substance Use: No Allergies-Medications (Allergen,Severity, Reaction): Coded Allergies: diphenhydramine (Unverified Allergy, Unknown, 07/20/17) erythromycin base (Unverified Allergy, Unknown, 07/20/17) ketorolac (Unverified Allergy, Unknown, 07/20/17) Reported Meds & Prescriptions Reported Meds & Active Scripts Active Trazodone (Trazodone HCl) 50 Mg Tab 50 Mg PO HS Protonix (Pantoprazole Sodium) 20 Mg Tab 20 Mg PO DAILY Olanzapine 5 Mg Tab 5 Mg PO DAILY Norvasc (Amlodipine Besylate) 5 Mg Tab 2.5 Mg PO 1/2 PO DAILY Reported Artificial Tears Opth Oint (White Petrolatum-Mineral Oil Opth Oint 83-15%) 83-15 % Oint 1 Applic EACH EYE BID Pull down lower eyelid & apply 1/4 inch to inside of eyelid. Lidocaine Patch 12 HR (Lidocaine) 5 % Patch 1 Patch TOPICAL DAILY Remove patch after 12 hours Risperidone 1 Mg Tab 1 Mg PO DAILY Propranolol (Propranolol HCl) 10 Mg Tab 10 Mg PO Q8HR Methotrexate 2.5 Mg Tab 10 Mg PO Q7D Folic Acid 1 Mg Tablet 1 Tab PO DAILY Aripiprazole 10 Mg Tab 10 Mg PO DAILY Hydrochlorothiazide 25 Mg Tab 25 Mg PO DAILY Fluoxetine (Fluoxetine HCl) 10 Mg Tab 10 Mg PO TID Lamotrigine 150 Mg Tab 150 Mg PO DAILY Gabapentin 300 Mg Cap 300 Mg PO TID Atorvastatin (Atorvastatin Calcium) 10 Mg Tab 10 Mg PO HS Review of Systems Except as stated in HPI: all other systems reviewed are Neg Physical Exam Narrative GENERAL: Alert well-appearing 56-year-old female SKIN: Warm and dry. HEAD: Normocephalic. Atraumatic EYES: No scleral icterus. No injection or drainage. NECK: Supple MUSCULOSKELETAL: No cyanosis. Left lower extremity: +TTP and moderate swelling to the lateral malleolus. No deformity. The ankle is stable. 2+ DP pulse. Normal sensation. Brisk cap refill. BACK: Nontender without obvious deformity. No CVA tenderness. Data Data Last Documented VS Vital Signs Date Time Temp Pulse Resp B/P (MAP) Pulse Ox O2 Delivery O2 Flow Rate FiO2 07/20/17 11:47 99.0 58 16 119/67 (84) 98 Orders Orders Ankle, Complete ([id number]) (07/20/17 ) [facility] Medical Decision Making Medical Screen Exam Complete: Yes Emergency Medical Condition: Yes Differential Diagnosis Ankle sprain, ankle fracture, ankle dislocation Narrative Course 56-year-old female here with left ankle sprain. The extremity is neurovascular intact. X-rays negative for fracture. Ankle stirrup splint and scratches provided to patient. Instructed to ice and elevate the extremity. Tylenol as needed for pain Diagnosis Primary Impression: Ankle sprain Qualified Codes: S93.401A - Sprain of unspecified ligament of right ankle, initial encounter Referrals: Primary Care Physician Additional Instructions: Ice and elevate the extremity. Ankle stirrup splint and crutches as directed. Tylenol as needed for pain. Follow-up the primary doctor Disposition: 01 DISCHARGE HOME Condition: Stable Sharmaine Pierson Jul 20, 2017 12:49
== END 2017-07-20 13:18 | disposition home or self-care (01) ==
LOC: PHEFT 11:01
DX: S93.401A Sprain of unspecified ligament of right ankle, initial encounter (principal); F41.9 Anxiety disorder, unspecified; F32.9 Major depressive disorder, single episode, unspecified; E78.00 Pure hypercholesterolemia, unspecified; K21.9 Gastro-esophageal reflux disease without esophagitis; F20.9 Schizophrenia, unspecified; F31.9 Bipolar disorder, unspecified; X50.1XXA Overexertion from prolonged static or awkward postures, initial encounter; Z79.899 Other long term (current) drug therapy
CPT/HCPCS: 73610; 99283; E0113; L1906